=== PATIENT | male | born 1990 | race African-American/Black ===

== ENCOUNTER 2022-10-16 10:09 | Emergency (ER) | payer SELFPAY ==
[~2022-10-16] VITALS: Ht 188 cm; Wt 145.1 kg
[2022-10-16 12:03] VITALS: BP_SYST 142
--- NOTE | 2022-10-16 15:55 | NUR ---
PLACED IN HALLWAY FOR [facility].
--- NOTE | 2022-10-16 15:56 | NUR ---
ER at bedside examining patient.
--- NOTE | 2022-10-16 15:57 | NUR ---
Patient brought in complaining of left testicular swelling x 2 months worsening. denies any pain, fever, dysuria, penile discharge.
[2022-10-16] MEDS ORDERED: IBUP-1971 PO (16:01)
[2022-10-16 16:17] VITALS: BP_SYST 121
--- NOTE | 2022-10-16 16:17 | NUR ---
Patient given written and verbal discharge instructions and verbalizes understanding. ER MD discussed with patient the results and treatment provided. Patient in stable condition. ID arm band removed. Rx of Motrin given. Patient educated on pain management and to follow up with PMD. Pain Scale 0/10 Opportunity for questions provided and answered. Medication side effect fact sheet provided.
== END 2022-10-16 16:17 | disposition home or self-care (01) ==
LOC: EDBD 10:09 → SED 10:09
DX: N43.3 Hydrocele, unspecified (principal); Z79.899 Other long term (current) drug therapy
CPT/HCPCS: 76870-TC; 99284